=== PATIENT | male | born 1980 | race Caucasian/White ===

== ENCOUNTER → 2020-06-20 | Outpatient (REF) | payer OTHER ==
[~2020-06-20] MED LIST: CELE50CA PO; PRIL20TA2 PO; ZYRTTAB8 PO
== END ==
LOC: M LAB REF 09:46
PROVIDERS: ATTEND Internal Medicine Gastroenterology
DX: Z80.0 Family history of malignant neoplasm of digestive organs (principal)

== ENCOUNTER 2020-06-24 09:01 | Day surgery (SDC) | payer OTHER ==
[~2020-06-24] VITALS: Ht 188 cm; Wt 128.3 kg
[~2020-06-24 09:01] MED LIST changes: +NS 1,000 ML IV ONE
[2020-06-24] MEDS ORDERED: LIDOCAINE 2% 100MG/5ML SDV (FOR ANES.) As Ordered ONE (09:06)
[2020-06-24] MEDS ORDERED: propofoL 200 MG/20 ML VIAL As Ordered ONE (09:37)
--- NOTE | 2020-06-24 10:15 | ROOR ---
Patient Name: Kirby Rees Procedure Date: 06/24/2020 9:59 AM Date of : 1980 Age: 39 Room: [facility] Gender: Male Note Status: Finalized Procedure: Upper Endoscopy + Biopsies Indications: Heartburn, Exclusion of Charles's esophagus Providers: Chito Ibanez MD Referring MD: NKECHI ARBOLEDA MD Requesting Provider: Medicines: Monitored Anesthesia Care Complications: No immediate complications. Procedure: Pre-Anesthesia Assessment: - The heart rate, respiratory rate, oxygen saturations, blood pressure, adequacy of pulmonary ventilation, and response to care were monitored throughout the procedure. The Endoscope was introduced through the mouth, and advanced to the second part of duodenum. The upper GI endoscopy was accomplished without difficulty. The patient tolerated the procedure well. Findings: The Z-line was irregular and was found 40 cm from the incisors. Multiple biopsies were obtained with cold forceps for evaluation to rule out Charles's Esophagus randomly at the gastroesophageal junction. No other significant abnormalities were identified in a careful examination of the stomach. The exam of the duodenum was otherwise normal. Impression: - Z-line irregular, 40 cm from the incisors. - Multiple biopsies were obtained at the gastroesophageal junction. - The examination was otherwise normal. Recommendation: - Patient has a contact number available for emergencies. The signs and symptoms of potential delayed complications were discussed with the patient. Return to normal activities tomorrow. Written discharge instructions were provided to the patient. - High fiber diet. - Discharge patient to home. - Follow an antireflux regimen. - Continue present medications. - Await pathology results. - Telephone GI clinic for pathology results in 1 week. - The findings and recommendations were discussed with the patient. Chito Ibanez MD Chito Ibanez MD 06/24/2020 10:15:42 AM Electronically signed by Chito Ibanez MD Number of Addenda: 0 Note Initiated On: 06/24/2020 9:59 AM Estimated Blood Loss: Estimated blood loss: none.
--- NOTE | 2020-06-24 10:26 | ROOR ---
Patient Name: Kirby Rees Procedure Date: 06/24/2020 10:00 AM Date of : 1980 Age: 39 Room: [facility] Gender: Male Note Status: Finalized Procedure: Total Colonoscopy to Cecum Indications: Lower abdominal pain, Rectal bleeding, Change in bowel habits Providers: Chito Ibanez MD Referring MD: NKECHI ARBOLEDA MD Requesting Provider: Medicines: Monitored Anesthesia Care Complications: No immediate complications. Procedure: Pre-Anesthesia Assessment: - The heart rate, respiratory rate, oxygen saturations, blood pressure, adequacy of pulmonary ventilation, and response to care were monitored throughout the procedure. The Colonoscope was introduced through the anus and advanced to the cecum, identified by appendiceal orifice and ileocecal valve. The colonoscopy was performed without difficulty. The patient tolerated the procedure well. The quality of the bowel preparation was excellent. Findings: The perianal and digital rectal examinations were normal. Non-bleeding internal hemorrhoids were found during retroflexion. The hemorrhoids were small and Grade I (internal hemorrhoids that do not prolapse). No other significant abnormalities were identified in a careful examination of the remainder of the colon. The exam was otherwise without abnormality on direct and retroflexion views. Impression: - Non-bleeding internal hemorrhoids. - The examination was otherwise normal on direct and retroflexion views. - No specimens collected. - The exam was otherwise normal to the cecum. Recommendation: - Patient has a contact number available for emergencies. The signs and symptoms of potential delayed complications were discussed with the patient. Return to normal activities tomorrow. Written discharge instructions were provided to the patient. - High fiber diet. - Discharge patient to home. - Continue present medications. - Repeat colonoscopy in 10 years for screening purposes. - Return to referring physician. - The findings and recommendations were discussed with the patient. Chito Ibanez MD Chito Ibanez MD 06/24/2020 10:26:19 AM Electronically signed by Chito Ibanez MD Number of Addenda: 0 Note Initiated On: 06/24/2020 10:00 AM Estimated Blood Loss: Estimated blood loss: none.
[2020-06-24 10:50] VITALS: BP 115/77
== END 2020-06-24 11:10 | disposition home or self-care (01) ==
LOC: M OPP 09:01 → EDBD 10:30 → M OPP 11:10
PROVIDERS: ATTEND Internal Medicine Gastroenterology
DX: R10.30 Lower abdominal pain, unspecified (principal); K62.5 Hemorrhage of anus and rectum; K64.0 First degree hemorrhoids; R19.4 Change in bowel habit; K22.8 Other specified diseases of esophagus; R12 Heartburn; K22.70 Barrett's esophagus without dysplasia; Z79.899 Other long term (current) drug therapy; Z80.0 Family history of malignant neoplasm of digestive organs; Z88.1 Allergy status to other antibiotic agents; Z87.891 Personal history of nicotine dependence

== ENCOUNTER → 2020-08-25 | Outpatient (CLI) | payer OTHER ==
[~2020-08-25] MED LIST changes: -NS 1,000 ML IV ONE
--- NOTE | 2020-08-26 11:18 | ECHO ---
DATE OF PROCEDURE: 08/25/2020 Age: 39 Gender: Male Height: 74 inches Weight: 294 pounds Body surface area: 2.56 m2 PATIENT LOCATION: Outpatient. REFERRING PHYSICIAN: ROGER Peace INDICATION: Abnormal EKG. MEASUREMENTS: 2D Measurements: RV 4.2 cm LV 4.2 cm Septum 1.2 cm Posterior wall 1.2 cm Aortic Root 3.5 cm LA 3.8 cm LVEF 65% Doppler Measurements: AV 1.0 m/s LVOT 0.9 m/s LVOT diameter 2.2 cm MV - technically not possible PV 0.8 m/s Pulmonary artery acceleration time 95 msec PASP 40 mmHg IVC 2.0 cm COMMENTS: Normal sinus rhythm with first-degree AV block, but no intraventricular conduction disturbance. Technically difficult study in light of the patients body habitus, but some diagnostically useful information was still obtained. M-mode and two-dimensional echocardiography was performed with pulse, continuous wave, color flow, and tissue Doppler studies. Borderline concentric left ventricular hypertrophy with normal wall motion. Borderline left atrial enlargement, but unable to assess left ventricular diastolic function in light of poor image quality. Borderline right heart chamber enlargement with Doppler evidence of moderate pulmonary hypertension. IVC size upper limits of normal with adequate respiratory collapse against an elevated central venous pressure at this time. Normal aortic dimensions. Valvular structures were difficult to visualize clearly; but by Doppler studies, there does not appear to be any severe valvular dysfunction or abnormality. Difficult to rule out an intracardiac mass because of image problem as mentioned above. No pericardial effusion. MTDD
== END ==
LOC: M CARPUL 09:16
PROVIDERS: ATTEND Physician Assistant
DX: I44.0 Atrioventricular block, first degree (principal)

== ENCOUNTER → 2020-08-26 | Outpatient (CLI) | payer OTHER ==
[~2020-08-26] MED LIST changes: +ISOVUE-370 76% 100ML VIAL As Ordered ONE
--- NOTE | 2020-08-26 09:10 | REP ---
INDICATION: INCREASED B/L PERIBRONCH IAL/HILAR MARKINGS ON CHEST XR COMPARISON: None TECHNIQUE: Axial contrast enhanced images from the thoracic inlet to the upper abdomen with coronal and sagittal reformations using 75 ml Isovue 370 intravenous contrast material. This CT examination was performed using the following dose reduction techniques: Automated exposure control, adjustment of mA and/or kv according to the patient's size, and use of iterative reconstruction technique. FINDINGS: The bilateral lung contreras are relatively well aerated and symmetric. No consolidation or effusion. Few scattered small noncalcified nodules up to 3 mm are identified and nonspecific. No significant interstitial thickening or abnormality is appreciated. The tracheobronchial tree is patent and without bronchiectasis or significant peribronchial thickening. Mediastinum demonstrates normal thoracic aorta, pulmonary vasculature, and heart/pericardium. No significant adenopathy. Limited upper abdomen demonstrates normal bilateral adrenal glands along with hepatosteatosis. Surrounding musculoskeletal structures intact and without acute osseous abnormality. IMPRESSION: 1. Few small noncalcified nodules up to 3 mm. Low risk patients require no significant follow-up while high risk patients may warrant 12 month follow-up evaluation. 2. No significant interstitial process or peribronchial thickening noted. No consolidation or effusion. No adenopathy. <Electronically signed by Donato Ng > 08/26/20 0906
== END ==
LOC: M RAD 08:04
PROVIDERS: ATTEND Physician Assistant
DX: R05 Cough (principal); R06.2 Wheezing
CPT/HCPCS: 71260; Q9967

== ENCOUNTER → 2021-06-26 | Outpatient (REF) ==
[~2021-06-26] MED LIST changes: -ISOVUE-370 76% 100ML VIAL As Ordered ONE
--- NOTE | 2021-06-26 09:35 | REP ---
INDICATION: PAIN COMPARISON: None. TECHNIQUE: AP and lateral views of the right and left elbow. FINDINGS: Examination is relatively symmetric and age-appropriate bilaterally. There is no evidence for acute or healed injury to either the right or left elbow. No significant arthritic changes are identified. The anterior and posterior fat pads are normal in position bilaterally. IMPRESSION: Symmetric relatively age-appropriate bilateral elbow radiograph series. <Electronically signed by Donato Ng > 06/26/21 0926
--- NOTE | 2021-06-26 09:37 | REP ---
INDICATION: PAIN COMPARISON: None. TECHNIQUE: AP, lateral, bilateral oblique views right and left foot. FINDINGS: With the exception for prior normal appearing surgical changes at the right 1st metatarsal, the osseous structures, joint spaces, and surrounding soft tissues are essentially age-appropriate, symmetric and normal. No evidence for acute or healed injury. No significant overt osteoarthritic or inflammatory arthritic changes are identified. IMPRESSION: 1. Evidence for prior surgical intervention at the right 1st metatarsal bone. 2. Otherwise symmetric, relatively normal age-appropriate bilateral foot radiograph series. . <Electronically signed by Donato Ng > 06/26/21 0998
== END ==
LOC: M PLAIMG 09:00
PROVIDERS: ATTEND Internal Medicine
DX: M25.529 Pain in unspecified elbow (principal); M25.579 Pain in unspecified ankle and joints of unspecified foot

== ENCOUNTER 2023-09-09 08:05 | Day surgery (SDC) | payer OTHER ==
[~2023-09-09] VITALS: Ht 188 cm; Wt 146.5 kg
[~2023-09-09 08:05] MED LIST changes: +ALTA1CAP3 PO; +NS 1,000 ML IV ONE; +ROSU40TA4 PO; +THERTAB52 PO; +TOPR50TA PO
[2023-09-09] MEDS ORDERED: propofoL 200 MG/20 ML VIAL As Ordered ONE (09:04)
[2023-09-09] MEDS ORDERED: fentaNYL 100 MCG/2 ML INJECTION As Ordered ONE (09:04)
[2023-09-09] MEDS ORDERED: LIDOCAINE 2% 100MG/5ML SDV (FOR ANES.) As Ordered ONE (09:04)
[2023-09-09 09:30] VITALS: TEMP 97.2
[2023-09-09 09:45] VITALS: BP 134/85; O2SAT 95
== END 2023-09-09 09:51 | disposition home or self-care (01) ==
LOC: M OPP 08:05
PROVIDERS: ATTEND Internal Medicine Gastroenterology
DX: Z12.11 Encounter for screening for malignant neoplasm of colon (principal); Z80.0 Family history of malignant neoplasm of digestive organs; D12.6 Benign neoplasm of colon, unspecified; K64.0 First degree hemorrhoids; K22.70 Barrett's esophagus without dysplasia; K22.89 Other specified disease of esophagus; K31.A0 Gastric intestinal metaplasia, unspecified; R12 Heartburn; Z79.02 Long term (current) use of antithrombotics/antiplatelets; Z79.899 Other long term (current) drug therapy; Z88.1 Allergy status to other antibiotic agents
CPT/HCPCS: 43239; 45380; 88305; J3010

== ENCOUNTER → 2024-06-09 | Outpatient (CLI) | payer OTHER ==
[~2024-06-09] MED LIST changes: -CELE50CA PO; +CELE50CA17 PO; -NS 1,000 ML IV ONE; -ROSU40TA4 PO; +ROSU40TA81 PO
== END ==
LOC: M SLEEP 20:00
PROVIDERS: ATTEND Internal Medicine
DX: G47.33 Obstructive sleep apnea (adult) (pediatric) (principal)

== ENCOUNTER → 2025-05-31 | Outpatient (CLI) | payer OTHER | LOC: M SLEEP 20:00 | PROVIDERS: ATTEND Internal Medicine | DX: G47.33 Obstructive sleep apnea (adult) (pediatric) (principal) ==